=== PATIENT | male | born 1985 | race Caucasian/White ===

== ENCOUNTER 2018-08-03 17:42 | Emergency (ER) | payer MEDICAID ==
[~2018-08-03] VITALS: Ht 165.1 cm; Wt 97.7 kg
[2018-08-03 18:14] VITALS: BP 129/68
== END 2018-08-04 01:00 | disposition left against medical advice (07) ==
LOC: ER 17:42
DX: Z53.21 Procedure and treatment not carried out due to patient leaving prior to being seen by health care provider (principal)